=== PATIENT | female | born 1995 | race Caucasian/White ===

== ENCOUNTER 2018-01-26 08:32 | Emergency (ER) | payer OTHER ==
[2018-01-26 08:40] VITALS: BP 117/70
[2018-01-26] MEDS ORDERED: DEXAMETHASONE 10 MG/ML VIAL PO STA (08:52)
--- NOTE | 2018-01-26 08:55 | ED Physician Documentation ---
PD BREN HELAURA - Stated complaint Stated Complaint: OBJ IN THROAT - Chief complaint Chief Complaint: General - History obtained from History obtained from: Patient - History of Present Illness Timing - onset: Today Timing - duration: Hours Timing - details: Gradual onset, Still present Location: Throat Improves: Nothing Worsens: Swalllowing Associated symptoms: Congestion, Rhinorrhea, Swollen nodes, Cough. 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 She feels like something might be stuck in her tonsil. This is happened to her a number of times previously she has had tonsil with which she is coughed up about once or twice per month. She is not getting good sleep and she has had a little bit of a cough this past week. After eating today she began to feel more and more sensation in her throat of rawness and irritation. Review of Systems Constitutional: denies: Fever Eyes: denies: Decreased vision Ears: denies: Ear pain Nose: reports: Rhinorrhea / runny nose, Congestion Throat: reports: Sore throat Cardiac: denies: Chest pain / pressure, Palpitations Respiratory: reports: Cough. 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 Psych: Post traumatic stress disorder Other Past Medical History: PCOS - Past Surgical History Past Surgical History: Yes Ortho: Other - Present Medications Home Medications: Ambulatory Orders Medication Instructions Recorded Confirmed Azithromycin [Zithromax] 250 mg PO DAILY #6 tablet 01/26/18 Spironolactone [Aldactone] 1 tab PO DAILY 01/26/18 01/26/18 buPROPion [Wellbutrin Sr] 2 tab PO DAILY 01/26/18 01/26/18 - Allergies Allergies/Adverse Reactions: Allergies Allergy/AdvReac Type Severity Reaction Status Date / Time No Known Drug Allergies Allergy Verified 01/05/16 19:06 - Social History Does the pt smoke?: No Smoking Status: Former smoker Does the pt drink ETOH?: Yes Does the pt have substance abuse?: No - Immunizations Immunizations are current?: Yes PD ED PE NORMAL - Vitals Vital signs reviewed: Yes (normal ) - General General: Alert and oriented X 3, No acute distress, Well developed/nourished - HEENT HEENT: Atraumatic, PERRL, EOMI, Other (both TM's are mildly inflamed the left is worse than the right. The tonsil on the left is inflamed with crypts and without exudate and there is no tonsillith. ) - Neck Neck: Supple, no meningeal sign, No bony TTP, Other (tender submandibular adenopathy on the left ) - Cardiac Cardiac: RRR, No murmur - Respiratory Respiratory: No respiratory distress, Clear bilaterally - Derm Derm: Normal color, Warm and dry, No rash - Extremities Extremities: No deformity, No edema - Neuro Neuro: No motor deficit, No sensory deficit Eye Opening: Spontaneous Motor: Obeys Commands Verbal: Oriented GCS Score: 15 - Psych Psych: Normal mood, Normal affect Results - Vitals Vitals: Vital Signs - 24 hr // 08:36 Temperature 36.5 C Heart Rate 87 Respiratory 16 Rate Blood Pressure 117/70 O2 Saturation 98 Oxygen O2 Source Room air PD MEDICAL DECISION MAKING - ED course Complexity details: reviewed results, considered differential, d/w patient ED course: 22-year-old female with a history of frequent tonsil inflammation and tonsilloliths has a foreign body sensation in her throat there is no evidence of this on examination I do not see a tonsil with today she does have an inflamed tonsil on the left and otitis on the left as well. She is administered dexamethasone 10 mg orally and we will place her on some antibiotic. I have encouraged her to improve her sleep hygiene. Departure - Departure Disposition: 01 Home, Self Care Clinical Impression: Tonsillitis Condition: Stable Instructions: ED Tonsillitis Follow-Up: KEREN Ramosdeny Grant [Provider Group] Prescriptions: Azithromycin [Zithromax] 250 mg PO DAILY #6 tablet
[2018-01-26] MEDS ORDERED: CHERRY SYRUP 10 ML UDC PO ONE (09:03)
== END 2018-01-26 09:01 | disposition home or self-care (01) ==
LOC: ED 08:32
DX: J03.90 Acute tonsillitis, unspecified (principal); H66.92 Otitis media, unspecified, left ear; Z87.891 Personal history of nicotine dependence
CPT/HCPCS: 99283; A9270

== ENCOUNTER 2018-01-30 17:09 | Emergency (ER) | payer OTHER ==
--- NOTE | 2018-01-30 18:15 | XRAY Report ---
EXAM: LEFT GREAT TOE RADIOGRAPHY EXAM DATE: 01/30/2018 05:57 PM. CLINICAL HISTORY: Pain. COMPARISON: None. TECHNIQUE: 3 views. FINDINGS: Bones: Normal. No fracture or bone lesion. Joints: Normal. No subluxations. Soft Tissues: Normal. No soft tissue swelling. IMPRESSION: Normal great toe radiography. [facility] Referring Provider Line: [phone] SITE ID: [id number]
--- NOTE | 2018-01-30 19:01 | ED Physician Documentation ---
PD HPI LOWER EXT INJURY - Stated complaint Stated Complaint: LT BIG TOE PX - Chief complaint Chief Complaint: Ext Problem - History obtained from History obtained from: Patient - History of Present Illness PD HPI LOW EXT INJURY LOCATION: Left, Toe (great) Type of injury: Other (no injury) Pain level max: 5 Pain level now: 3 Improved by: Rest Worsened by: Moving (walking), Palpating Associated symptoms: Swelling. No: Weakness, Numbness, Tingling Contributing factors: No: Anticoagulated, Prior ortho surgery Similar symptoms before: Has not had sx before - Additional information Additional information: Started with L 1st MTP joint swelling and pain a few days ago. No history of gout. Recently on abx for ear infection. No injury. Not . Better with rest. Patient is on spironolactone for polycystic ovarian syndrome Review of Systems Constitutional: denies: Fever, Chills GI: denies: Nausea, Vomiting : denies: Dysuria, Frequency, Now EGA PD PAST MEDICAL HISTORY - Past Medical History Past Medical History: Yes [employer]OL [employer]: Other (Polycystic ovarian syndrome) Psych: Post traumatic stress disorder - Past Surgical History Past Surgical History: Yes Ortho: Other - Present Medications Home Medications: Ambulatory Orders Medication Instructions Recorded Confirmed Azithromycin [Zithromax] 250 mg PO DAILY #6 tablet 01/26/18 Spironolactone [Aldactone] 1 tab PO DAILY 01/26/18 01/26/18 buPROPion [Wellbutrin Sr] 2 tab PO DAILY 01/26/18 01/26/18 Indomethacin 25 mg PO Q8H PRN #20 capsule 01/30/18 - Allergies Allergies/Adverse Reactions: Allergies Allergy/AdvReac Type Severity Reaction Status Date / Time No Known Drug Allergies Allergy Verified 01/05/16 19:06 - Living Situation Living Arrangement: reports: At home - Social History Does the pt smoke?: No Smoking Status: Never smoker Does the pt drink ETOH?: Yes Does the pt have substance abuse?: No - Immunizations Immunizations are current?: Yes PD ED PE NORMAL - Vitals Vital signs reviewed: Yes - General General: Alert and oriented X 3, No acute distress - HEENT HEENT: Moist mucous membranes - Neck Neck: Supple, no meningeal sign - Cardiac Cardiac: RRR, Strong equal pulses - Respiratory Respiratory: No respiratory distress, Clear bilaterally - Derm Derm: Warm and dry, No rash - Extremities Extremities: Other (Left first MTP - Mild erythema and swelling. Mild tenderness to palpation. Mild pain with range of motion. Neurovascularly intact. Otherwise normal exam) - Neuro Neuro: Alert and oriented X 3 Results - Vitals Vitals: Vital Signs - 24 hr 01/30/18 01/30/18 17:21 19:32 Temperature 36.3 C L 36.7 C Heart Rate 83 84 Respiratory 18 16 Rate Blood Pressure 129/85 H 130/93 H O2 Saturation 99 98 Oxygen O2 Source Room air - Rads (name of study) L great toe xray Radiology: Prelim report reviewed, EMP read contemporaneously, See rad report ( normal) PD MEDICAL DECISION MAKING - ED course Complexity details: reviewed results, re-evaluated patient, considered differential, d/w patient ED course: Patient is a 22-year-old female who presents to the emergency department with what appears to be gout. Given colchicine here. Will place on indomethacin for home. Will have her continue to hydrate herself well as she is on spironolactone. Will follow up with her PCP for further evaluation. Patient counseled regarding signs and symptoms for which I believe and urgent re- evaluation would be necessary. Patient with good understanding of and agreement to plan and is comfortable going home at this time This document was made in part using voice recognition software. While efforts are made to proofread this document, sound alike and grammatical errors may occur. No evidence of cellulitis or septic joint Departure - Departure Disposition: 01 Home, Self Care Clinical Impression: Gout Qualifiers: Gout site: unspecified site Gout etiology: unspecified cause Chronicity: acute Qualified Code(s): M10.9 - Gout, unspecified Condition: Good Instructions: ED Arthritis Gout Follow-Up: your,doctor in 1 week [Other] Prescriptions: Indomethacin 25 mg PO Q8H PRN #20 capsule PRN Reason: toe pain Comments: Return if you worsen. Drink plenty of fluids. This should improve over the next few days. Discharge Date/Time: 01/30/18 19:30
[2018-01-30] MEDS ORDERED: COLCHICINE 0.6 MG TABLET PO ONE (19:30)
[2018-01-30 19:34] VITALS: BP 130/93
[2018-01-30] MEDS ORDERED: COLCHICINE 0.6 MG TABLET PO SCH (20:00)
== END 2018-01-30 19:30 | disposition home or self-care (01) ==
LOC: ED 17:09
DX: M10.9 Gout, unspecified (principal)
CPT/HCPCS: 73660; 99283; A9270